=== PATIENT | male | born 1975 | race Caucasian/White ===

== ENCOUNTER 2022-06-27 16:18 | Emergency (ER) | payer BC ==
[~2022-06-27] VITALS: Ht 177.8 cm; Wt 117.9 kg
== END 2022-06-27 18:16 | disposition home or self-care (01) ==
LOC: ER 16:18
DX: S61.011A Laceration without foreign body of right thumb without damage to nail, initial encounter (principal); W59.81XA Bitten by other nonvenomous reptiles, initial encounter; Y93.9 Activity, unspecified; Y92.9 Unspecified place or not applicable; Y99.9 Unspecified external cause status